=== PATIENT | male | born 1975 | race Caucasian/White ===

== ENCOUNTER 2016-11-16 13:33 | Emergency (ER) | payer BC ==
[2016-11-16] MEDS ORDERED: Aspirin Low Dose CHEW TAB* 81 MG PO ONE (13:59)
[2016-11-16 14:54] LABS: Hematocrit 47 % (42-52); Hemoglobin 16.2 g/dl (14.0-18.0); Mean Corpuscular HGB Conc 34 g/dl (31-36); Mean Corpuscular Hemoglobin 30 pg (27-31); Mean Corpuscular Volume 87 fL (80-94); Mean Platelet Volume 9 um3 (7.4-10.4); Red Blood Count 5.41 10^6/ul (4.0-5.4); Red Cell Distribution Width 13 % (10.5-15); White Blood Count 10.2 10^3/ul (3.5-10.8)
--- NOTE | 2016-11-16 15:07 | RAD ---
Indication: Chest pain. 2 views of the chest including dual energy PA views are reviewed. No prior study is available for comparison. The lung cochran demonstrate no pleural fluid, pneumonia or pneumothorax. No mediastinal shift is noted. The cardiac silhouette is unremarkable. The visualized bony structures are unremarkable. IMPRESSION: No active cardiopulmonary disease is noted.
[2016-11-16 15:09] LABS: Albumin 4.4 g/dL (3.2-5.2); BUN/Creatinine Ratio 16.2 (8-20); Calcium 9.8 mg/dL (8.6-10.3); EGFR African American 106.6 (>60); EGFR Non-African American 82.9 (>60); Globulin 3.1 g/dL (2-4); Potassium 3.6 mmol/L (3.5-5.0); Total Bilirubin 0.5 mg/dL (0.2-1.0); Total Protein 7.5 g/dL (6.4-8.9)
[2016-11-16 15:44] VITALS: BP 126/77
--- NOTE | 2016-11-16 19:37 | ED ---
marek Koroma Timothy, scribed for De Ortiz MD on 11/16/16 at 1353 . HPI Chest Pain - HPI Summary HPI Summary: Brad Rodriguez is a 41 yo male presenting to [facility] with chest discomfort. He states he has had 3 episodes today, and they cause him to have to take a deep breath. He states he has had CP his entire life, but in the last month or so his episodes have become more frequent. He states he experiences CP in bursts, and describes it as pressure from the inside out. He denies MHx of heart disease , or any aggravating and alleviating factors. Pt currently without pain. He states he has feelings of anxiety and dyspnea when he feel CP. He denies any PMHx. His PCP is Carlota Spann, and she recommended he present to [facility] for irregular heartbeat. - History of Current Complaint Time Seen by Provider: 11/16/16 13:53 Hx Obtained From: Patient Onset/Duration: Started Weeks Ago, Still Present, Worse Since - this month Timing: Intermittent, Lasting Seconds - 2-3 Initial Severity: Moderate Current Severity: Moderate Pain Intensity: 0 Pain Scale Used: 0-10 Numeric Chest Pain Location: Diffuse Character: Pressure/Squeezing - inside-out Aggravating Factor(s): Nothing Alleviating Factor(s): Nothing Associated Signs and Symptoms: Positive: Chest Pain, Shortness of Breath - Allergy/Home Medications Allergies/Adverse Reactions: Allergies Allergy/AdvReac Type Severity Reaction Status Date / Time No Known Allergies Allergy Verified 11/16/16 14:52 PMH/Surg Hx/FS Hx/Imm Hx Infectious Disease History: No Infectious Disease History: Denies: Traveled Outside the [place] in Last 30 Days - Family History Known Family History: Positive: Hypertension, Diabetes Review of Systems Constitutional: Negative Eyes: Negative ENT: Negative Positive: Chest Pain Positive: Shortness Of Breath Gastrointestinal: Negative Genitourinary: Negative Musculoskeletal: Negative Skin: Negative Neurological: Negative Positive: Anxious All Other Systems Reviewed And Are Negative: Yes Physical Exam Triage Information Reviewed: Yes Vital Signs On Initial Exam: Initial Vitals Temp Pulse Resp BP Pulse Ox 98.1 F 81 20 138/87 99 11/16/16 13:35 11/16/16 13:35 11/16/16 13:35 11/16/16 13:35 11/16/16 13:35 Vital Signs Reviewed: Yes Appearance: Positive: Well-Appearing, No Pain Distress Skin: Positive: Warm, Skin Color Reflects Adequate Perfusion, Dry Head/Face: Positive: Normal Head/Face Inspection Eyes: Positive: Normal ENT: Positive: Normal ENT inspection Neck: Positive: Supple, Nontender Respiratory/Lung Sounds: Positive: Clear to Auscultation, Breath Sounds Present Cardiovascular: Positive: RRR Abdomen Description: Positive: Nontender, Soft Bowel Sounds: Positive: Present Musculoskeletal: Positive: Normal Neurological: Positive: Normal Psychiatric: Positive: Normal, Affect/Mood Appropriate Diagnostics - Vital Signs Vital Signs Temp Pulse Resp BP Pulse Ox 11/16/16 13:35 98.1 F 81 20 138/87 99 - Laboratory Lab Results: Lab Results 11/16/16 11/16/16 Range/Units 14:30 14:30 WBC 10.2 (3.5-10.8) 10^3/ul RBC 5.41 H (4.0-5.4) 10^6/ul Hgb 16.2 (14.0-18.0) g/dl Hct 47 (42-52) % MCV 87 (80-94) fL MCH 30 (27-31) pg MCHC 34 (31-36) g/dl RDW 13 (10.5-15) % Plt Count 211 (150-450) 10^3/ul MPV 9 (7.4-10.4) um3 Neut % (Auto) 59.1 (38-83) % Lymph % (Auto) 30.5 (25-47) % [place] % (Auto) 8.6 (1-9) % Eos % (Auto) 1.0 (0-6) % Baso % (Auto) 0.8 (0-2) % Absolute Neuts (auto) 6.0 (1.5-7.7) 10^3/ul Absolute Lymphs (auto) 3.1 (1.0-4.8) 10^3/ul Absolute Monos (auto) 0.9 H (0-0.8) 10^3/ul Absolute Eos (auto) 0.1 (0-0.6) 10^3/ul Absolute Basos (auto) 0.1 (0-0.2) 10^3/ul Absolute Nucleated RBC 0 10^3/ul Nucleated RBC % 0 Sodium 134 (133-145) mmol/L Potassium 3.6 (3.5-5.0) mmol/L Chloride 102 (101-111) mmol/L Carbon Dioxide 28 (22-32) mmol/L Anion Gap 4 (2-11) mmol/L BUN 16 (6-24) mg/dL Creatinine 0.99 (0.67-1.17) mg/dL Est GFR ( Amer) 106.6 (>60) Est GFR (Non-Af Amer) 82.9 (>60) BUN/Creatinine Ratio 16.2 (8-20) Glucose 106 H (70-100) mg/dL Calcium 9.8 (8.6-10.3) mg/dL Total Bilirubin 0.50 (0.2-1.0) mg/dL AST 22 (13-39) U/L ALT 25 (7-52) U/L Alkaline Phosphatase 58 (34-104) U/L Troponin I 0.00 (<0.04) ng/mL Total Protein 7.5 (6.4-8.9) g/dL Albumin 4.4 (3.2-5.2) g/dL Globulin 3.1 (2-4) g/dL Albumin/Globulin Ratio 1.4 (1-3) Result Diagrams: 11/16/16 14:30 11/16/16 14:30 Lab Statement: Any lab studies that have been ordered have been reviewed, and results considered in the medical decision making process. - Radiology CXR Xray Interpretation: No Acute Changes - IMPRESSION: No active cardiopulmonary disease is noted. Radiology Interpretation Completed By: Radiologist - EKG 1338 Cardiac Rate: NL - 65 BPM EKG Interpretation: NSR @ 65 bPM, nonspecific inferior changes Re-Evaluation - Re-Evaluation First Eval Re-Evaluation Time: 15:32 Change: Unchanged Comment: Pt had his questions answered, and is agreeable to be discharged. Chest Pain Course/Dx - Course Assessment/Plan: Brad Rodriguez is a 41 yo male presenting to [facility] with chest discomfort, worse in the last month, but present throughout his entire life. After EKG with nonspecific inferior changes, and negative CXR, he will be discharged home with CP and instructions to follow up with his primary care physician. He may need to wear a Holter for these atypical symptoms although we did not catch any dysrythmias here. - Diagnoses Provider Diagnoses: Chest pain Discharge - Discharge Plan Condition: Stable Disposition: HOME Patient Education Materials: Chest Pain (ED) Referrals: Vince Tompkins DO [Primary Care Provider] - 2 Days Additional Instructions: Please follow up with your primary care physician regarding your visit to the emergency department today. Return to the emergency department with any new or recurring symptoms. The documentation as recorded by the marek mckenzie Timothy accurately reflects the service I personally performed and the decisions made by me, De Ortiz MD.
== END 2016-11-16 15:44 | disposition home or self-care (01) ==
LOC: ED 13:33
DX: R07.9 Chest pain, unspecified (principal); R06.02 Shortness of breath; F41.9 Anxiety disorder, unspecified
CPT/HCPCS: 36415; 71020; 80053; 84484; 85025; 93005; 99283; A9270-GY